=== PATIENT | male | born 1965 | race Caucasian/White ===

== ENCOUNTER 2022-04-21 00:16 | Emergency (ER) | payer MEDICAID, OTHER ==
[~2022-04-21] VITALS: Ht 203.2 cm; Wt 163.3 kg
[2022-04-21 00:46] VITALS: BP 188/90
--- NOTE | 2022-04-21 00:46 | NUR ---
[facility]IB[facility] 839 FROM B/C C/O BACK PAIN AND GROIN PAIN FROM RECENT TESTICULAR SURGERY. PT A/OX4. TOLERATING R/A WELL WITH NO RESP DISTRESS. SAFETY MEASURES IN PLACE.
--- NOTE | 2022-04-21 01:09 | NUR ---
called the facility multiple times to have the med list sent but no answer despite multiple call attempts
[2022-04-21] MEDS ORDERED: HYDROMORPHONE 1 MG/1 ML DISP.SYRIN ONE (01:13)
[2022-04-21] MEDS ORDERED: HYDROMORPHONE 1 MG/1 ML DISP.SYRIN IV ONE (01:30)
--- NOTE | 2022-04-21 01:31 | NUR ---
CALLED FACILITY AGAIN BUT STILL NO ANSWER.
--- NOTE | 2022-04-21 01:43 | NUR ---
[facility] 30-40 MIN [employer] ETA
--- NOTE | 2022-04-21 02:27 | NUR ---
[facility] AT PT'S BEDSIDE TO DC PT TO [facility]. REPORT GIVEN TO SHONNA
== END 2022-04-21 02:27 | disposition home or self-care (01) ==
LOC: ER 00:28
DX: G89.18 Other acute postprocedural pain (principal); I10 Essential (primary) hypertension; F32.A Depression, unspecified
CPT/HCPCS: 99283; 96374; J1170

== ENCOUNTER 2023-05-22 00:30 | Inpatient (IN) | payer OTHER ==
[~2023-05-22] VITALS: Ht 203.2 cm; Wt 142.0 kg
[2023-05-22] MEDS ORDERED: KETOROLAC TROMETHAMINE 15 MG/ML VIAL IV ONE (02:00)
[2023-05-22 02:01] LABS: CALCIUM, SERUM 8.5 mg/dL (8.5-10.1); CREATININE 1.2 mg/dL (0.6-1.3); POTASSIUM 4.4 mmol/L (3.5-5.1)
[2023-05-22 02:05] LABS: APPEARANCE,URINE TURBID (CLEAR); BILIRUBIN,URINE NEGATIVE (NEGATIVE); BLOOD, URINE 3+ Ery/uL (NEGATIVE); COLOR,URINE YELLOW (YELLOW); KETONES,URINE NEGATIVE (NEGATIVE); LEUKOCYTE ESTERASE ,URINE 3+ (NEGATIVE); NITRITE, URINE POSITIVE (NEGATIVE); PROTEIN,URINE 1+ mg/dl (NEGATIVE); UGLUCOSE NEGATIVE (NEGATIVE); UROBILINOGEN,URINE 0.2 EU/dL (0.2)
[2023-05-22 02:05] LABS: BASOPHILS % (AUTO) 0.1 % (0.0-2.0); EOSINOPHILS # (AUTO) 0.1 K/uL (0.0-0.7); EOSINOPHILS % (AUTO) 0.4 % (0.0-6.0); HEMATOCRIT 30 % (39-51); HEMOGLOBIN 9.8 g/dL (13.5-17.5); LYMPHOCYTES # (AUTO) 1.9 K/uL (0.8-4.8); LYMPHOCYTES % (AUTO) 13.4 % (20.0-44.0); MEAN CORPUSCULAR HEMOGLOBIN 32 PG (26.0-33.0); MEAN CORPUSCULAR HGB CONC 33 g/dl (31.0-36.0); MEAN CORPUSCULAR VOLUME 96 fL (80-96); MONOCYTES # (AUTO) 1.8 K/uL (0.1-1.30); MONOCYTES % (AUTO) 12.8 % (2.0-12.0); NEUTROPHILS # (AUTO) 10.5 K/uL (1.8-8.9); NEUTROPHILS % (AUTO) 73.3 % (43.0-81.0); PLATELET COUNT (AUTO) 220 K/uL (150-450); RED BLOOD CELL COUNT(AUTO) 3.09 MIL/uL (4.5-6.0); WHITE BLOOD COUNT (AUTO) 14.3 K/uL (4.3-11.0)
[2023-05-22 02:07] LABS: ALBUMIN 2.7 g/dL (3.4-5.0); BILIRUBIN,DIRECT 0.1 mg/dL (0.0-0.2); BILIRUBIN,TOTAL 0.3 mg/dL (0.2-1.0); TOTAL PROTEIN, SERUM 7.6 g/dL (6.4-8.2)
[2023-05-22 02:07] LABS: ADD URINE CULTURE YES; BACTERIA,URINE Moderate /HPF (None Seen); RBC,URINE 21-50 /HPF (0-2); SQUAMOUS EPITHELIAL CELL,UR Few /HPF (None Seen); WBC,URINE 51-80 /HPF (0-3)
[2023-05-22] MEDS ORDERED: KETOROLAC TROMETHAMINE 15 MG/ML VIAL ONE (02:16)
[2023-05-22] MEDS ORDERED: IV NS 0.9% 250 ML IV ONE (02:18)
[2023-05-22] MEDS ORDERED: IOHEXOL-300 100 ML VIAL IV ONE (02:18)
[2023-05-22] MEDS ORDERED: CT SWABBABLE VALVE TRANS SET 1 EA INFUS.SET MC ONE (02:18)
[2023-05-22] MEDS ORDERED: PIPERACILLIN /TAZOBACTAM 3.375 G in IV D5W 50 ML IV ONE (04:00)
[2023-05-22] MEDS ORDERED: PIPERACI/TAZO 3.375GM/D5W 50ML PB IV ONE (04:01)
[2023-05-22] MEDS ORDERED: VANCOMYCIN 1 GM in IV D5W 250 ML IV ONE (05:30)
[2023-05-22] MEDS ORDERED: CLINDAMYCIN 600 MG in IV D5W 100 ML IV ONE (05:30)
[2023-05-22] MEDS ORDERED: CLINDAMYCIN 900 MG/6 ML VIAL ONE (05:32)
[2023-05-22] MEDS ORDERED: VANCOMYCIN 1 GM /D5W 250 ML PB IV ONE (05:32)
[2023-05-22] MEDS ORDERED: IV NS 0.9% 1,000 ML BAG IV ONE (06:00)
[2023-05-22] MEDS ORDERED: MORPHINE SULFATE INJ 2 MG/ML DISP.SYRIN IV ONE (08:30)
[2023-05-22] MEDS ORDERED: MORPHINE SULFATE INJ 2 MG/ML DISP.SYRIN ONE (08:41)
[2023-05-22] MEDS ORDERED: ACET-868 PO (09:21)
[2023-05-22] MEDS ORDERED: HYDR4TAB4 PO (09:21)
[2023-05-22] MEDS ORDERED: MAGN400O6 PO (09:21)
[2023-05-22] MEDS ORDERED: DIVA500T2 PO (09:21)
[2023-05-22] MEDS ORDERED: LAMO200T2 PO (09:21)
[2023-05-22] MEDS ORDERED: HYDR50TA61 PO (09:21)
[2023-05-22] MEDS ORDERED: ACET-2605 PO (09:21)
[2023-05-22] MEDS ORDERED: LISI40TA13 PO (09:21)
[2023-05-22] MEDS ORDERED: BISA10SU11 RC (09:21)
[2023-05-22] MEDS ORDERED: SERT100T PO (09:21)
[2023-05-22] MEDS ORDERED: CRAN3875 PO (09:21)
[2023-05-22] MEDS ORDERED: NA P133E RC (09:21)
[2023-05-22] MEDS ORDERED: CRAN400T3 PO (09:21)
[2023-05-22] MEDS ORDERED: RAME8TAB24 PO (09:21)
[2023-05-22] MEDS ORDERED: HYDR-4077 PO (09:21)
[2023-05-22] MEDS ORDERED: ASPI-1169 PO (09:21)
[2023-05-22] MEDS ORDERED: CLON1TAB PO (09:21)
[2023-05-22] MEDS ORDERED: GABA300C PO (09:21)
[2023-05-22] MEDS ORDERED: AMLO10TA4 PO (09:21)
[2023-05-22 11:30] VITALS: BP 116/64; TEMP 98; O2SAT 100
[2023-05-22] MEDS: ENOXAPARIN SODIUM 40 MG/0.4 ML DISP.SYRIN SQ SCH ×2 (12:00→12:20)
[2023-05-22] MEDS ORDERED: BISACODYL SUPP (10 MG) 10 MG/SUPP.RECT SUPP.RECT RC PRN (12:00)
[2023-05-22] MEDS ORDERED: ONDANSETRON HCL/PF 4 MG/2 ML VIAL IVP PRN (12:00)
[2023-05-22] MEDS ORDERED: hydrALAZINE HCL 50 MG TABLET PO PRN (12:00)
[2023-05-22] MEDS ORDERED: Z GUARD REMEDY 4 OZ OINT TP PRN (12:00)
[2023-05-22] MEDS ORDERED: ACETAMINOPHEN 325 MG TABLET PO PRN (12:00)
[2023-05-22] MEDS: GABAPENTIN 300 MG CAPSULE PO SCH ×2 (12:18→16:07)
[2023-05-22] MEDS: DIVALPROEX SODIUM 500 MG TABLET.DR PO SCH ×2 (12:18→16:07)
[2023-05-22] MEDS: HYDROMORPHONE HCL 2 MG TABLET PO PRN ×2 (12:18→16:50)
[2023-05-22 12:33] LABS: CHOLESTEROL 161 mg/dL (<200); HDL CHOLESTEROL 25 mg/dL (40-60); LDL 110 mg/dL (0-99); TRIGLYCERIDES 147 mg/dL (30-150)
[2023-05-22 12:38] VITALS: BP 124/74; TEMP 97.9; O2SAT 100
[2023-05-22] MEDS: CEFTRIAXONE 1 G in IV D5W 50 ML IV SCH (15:33)
[2023-05-22 16:00] VITALS: BP 103/73; TEMP 97.3; O2SAT 96
[2023-05-22 20:00] VITALS: BP 105/66; TEMP 97.9; O2SAT 97
[2023-05-22] MEDS ORDERED: DOXYCYCLINE 200 MG in IV D5W 250 ML IV SCH (21:00)
[2023-05-22] MEDS: LamoTRIgine 100 MG TABLET PO SCH (22:50)
[2023-05-22] MEDS: DOXYCYCLINE 200 MG in IV D5W 250 ML IV SCH (23:03)
[2023-05-23] MEDS ORDERED: HYDROMORPHONE 1 MG/1 ML DISP.SYRIN IV ONE ×4 (00:30→11:30)
[2023-05-23 01:08] VITALS: BP 107/71
[2023-05-23 04:00] VITALS: BP_SYST 131; BP_SYST 138; BP_DIAS 89; BP_DIAS 93; TEMP 97.5; O2SAT 99
[2023-05-23 07:05] LABS: BASOPHILS % (AUTO) 0.3 % (0.0-2.0); EOSINOPHILS # (AUTO) 0.4 K/uL (0.0-0.7); EOSINOPHILS % (AUTO) 3.9 % (0.0-6.0); HEMATOCRIT 30 % (39-51); HEMOGLOBIN 9.9 g/dL (13.5-17.5); LYMPHOCYTES # (AUTO) 1.6 K/uL (0.8-4.8); LYMPHOCYTES % (AUTO) 17.3 % (20.0-44.0); MEAN CORPUSCULAR HEMOGLOBIN 32 PG (26.0-33.0); MEAN CORPUSCULAR HGB CONC 33 g/dl (31.0-36.0); MEAN CORPUSCULAR VOLUME 96 fL (80-96); MONOCYTES # (AUTO) 0.8 K/uL (0.1-1.30); MONOCYTES % (AUTO) 8.6 % (2.0-12.0); NEUTROPHILS # (AUTO) 6.5 K/uL (1.8-8.9); NEUTROPHILS % (AUTO) 69.9 % (43.0-81.0); PLATELET COUNT (AUTO) 224 K/uL (150-450); RED CELL DISTRIBUTION WIDTH 14.1 % (11.5-15.0); WHITE BLOOD COUNT (AUTO) 9.3 K/uL (4.3-11.0)
[2023-05-23 07:15] LABS: INR 1.2 (0.91-1.10); PARTIAL THROMBOPLASTIN TIME 29.3 SEC (24.3-34.3); PROTHROMBIN TIME 12.6 SECS (9.2-11.1)
[2023-05-23 07:22] LABS: CALCIUM, SERUM 8.4 mg/dL (8.5-10.1); CREATININE 0.9 mg/dL (0.6-1.3); MAGNESIUM 2.3 mg/dL (1.8-2.4); PHOSPHORUS 4.4 mg/dL (2.5-4.9); POTASSIUM 4.4 mmol/L (3.5-5.1)
[2023-05-23] MEDS: PANTOPRAZOLE 40 MG TABLET.DR PO SCH (07:30)
[2023-05-23 08:00] VITALS: BP 114/89; TEMP 98.1; O2SAT 96
[2023-05-23] MEDS: LISINOPRIL (20MG) 20 MG TABLET PO SCH (09:00)
[2023-05-23] MEDS: DIVALPROEX SODIUM 500 MG TABLET.DR PO SCH ×3 (09:00→16:25)
[2023-05-23] MEDS: GABAPENTIN 300 MG CAPSULE PO SCH ×3 (09:00→16:25)
[2023-05-23] MEDS: SERTRALINE HCL 50 MG TABLET PO SCH (09:00)
[2023-05-23] MEDS: AMLODIPINE BESYLATE 10 MG TABLET PO SCH (09:00)
[2023-05-23] MEDS: ASPIRIN 81 MG TAB.CHEW PO SCH (09:00)
[2023-05-23] MEDS: DOXYCYCLINE 200 MG in IV D5W 250 ML IV SCH ×2 (10:14→21:41)
[2023-05-23] MEDS ORDERED: POLYMYXIN B SULFATE 0 UNITS ONE (13:20)
[2023-05-23] MEDS ORDERED: BUPIVACAINE 0.5 % PF 150 MG/30 ML VIAL ONE (13:21)
[2023-05-23] MEDS ORDERED: LIDOCAINE HCL/MPF 1% 30 ML VIAL IJ ONE (13:21)
[2023-05-23] MEDS ORDERED: BUPIVACAINE 0.25% 75 MG/30 ML VIAL ONE (13:21)
[2023-05-23] MEDS ORDERED: FENTANYL PF 100MCG/2ML AMPUL ONE (14:00)
[2023-05-23] MEDS ORDERED: MIDAZOLAM HCL 2 MG/2ML VIAL ONE (14:00)
[2023-05-23] MEDS ORDERED: ROCURONIUM BROMIDE 50 MG/5 ML ONE (14:19)
[2023-05-23] MEDS ORDERED: HYDROMORPHONE 1 MG/1 ML DISP.SYRIN ONE (15:50)
[2023-05-23 16:00] VITALS: BP 121/77; TEMP 97.3; O2SAT 95
[2023-05-23] MEDS: CEFTRIAXONE 1 G in IV D5W 50 ML IV SCH (16:24)
[2023-05-23] MEDS: ENOXAPARIN SODIUM 40 MG/0.4 ML DISP.SYRIN SQ SCH (16:51)
[2023-05-23] MEDS: HYDROMORPHONE HCL 2 MG TABLET PO PRN (18:05)
[2023-05-23 20:00] VITALS: BP 108/69; TEMP 98; O2SAT 97
[2023-05-23] MEDS: LamoTRIgine 100 MG TABLET PO SCH (21:41)
[2023-05-23] MEDS: HYDROCODONE/APAP 10/325MG TABLET PO PRN (22:09)
[2023-05-24] MEDS: HYDROCODONE/APAP 10/325MG TABLET PO PRN ×4 (03:48→23:43)
[2023-05-24 06:21] VITALS: BP 141/86; TEMP 97.8; O2SAT 98
[2023-05-24 07:26] LABS: BASOPHILS % (AUTO) 0.4 % (0.0-2.0); EOSINOPHILS # (AUTO) 0.3 K/uL (0.0-0.7); EOSINOPHILS % (AUTO) 4.3 % (0.0-6.0); HEMATOCRIT 31 % (39-51); LYMPHOCYTES # (AUTO) 1.8 K/uL (0.8-4.8); LYMPHOCYTES % (AUTO) 27.5 % (20.0-44.0); MEAN CORPUSCULAR HEMOGLOBIN 33 PG (26.0-33.0); MEAN CORPUSCULAR HGB CONC 33 g/dl (31.0-36.0); MEAN CORPUSCULAR VOLUME 100 fL (80-96); MONOCYTES # (AUTO) 0.5 K/uL (0.1-1.30); MONOCYTES % (AUTO) 7.8 % (2.0-12.0); NEUTROPHILS # (AUTO) 3.9 K/uL (1.8-8.9); PLATELET COUNT (AUTO) 230 K/uL (150-450); RED BLOOD CELL COUNT(AUTO) 3.06 MIL/uL (4.5-6.0); RED CELL DISTRIBUTION WIDTH 14.2 % (11.5-15.0); WHITE BLOOD COUNT (AUTO) 6.5 K/uL (4.3-11.0)
[2023-05-24 07:56] LABS: CALCIUM, SERUM 8.1 mg/dL (8.5-10.1); CREATININE 0.8 mg/dL (0.6-1.3); MAGNESIUM 2.5 mg/dL (1.8-2.4); PHOSPHORUS 3.8 mg/dL (2.5-4.9); POTASSIUM 4.5 mmol/L (3.5-5.1)
[2023-05-24] MEDS: PANTOPRAZOLE 40 MG TABLET.DR PO SCH (07:59)
[2023-05-24 08:00] VITALS: BP 120/71; TEMP 98.5; O2SAT 98
[2023-05-24] MEDS: DIVALPROEX SODIUM 500 MG TABLET.DR PO SCH ×3 (08:41→17:27)
[2023-05-24] MEDS: LISINOPRIL (20MG) 20 MG TABLET PO SCH (08:41)
[2023-05-24] MEDS: AMLODIPINE BESYLATE 10 MG TABLET PO SCH (08:41)
[2023-05-24] MEDS: GABAPENTIN 300 MG CAPSULE PO SCH ×3 (08:41→17:27)
[2023-05-24] MEDS: SERTRALINE HCL 50 MG TABLET PO SCH (08:42)
[2023-05-24] MEDS: ASPIRIN 81 MG TAB.CHEW PO SCH (08:42)
[2023-05-24] MEDS: DOXYCYCLINE 200 MG in IV D5W 250 ML IV SCH ×2 (10:08→20:50)
[2023-05-24] MEDS: clonazePAM 1 MG TABLET PO PRN (10:15)
[2023-05-24 12:00] VITALS: BP 125/98; TEMP 98.1; O2SAT 100
[2023-05-24] MEDS: ENOXAPARIN SODIUM 40 MG/0.4 ML DISP.SYRIN SQ SCH (13:29)
[2023-05-24] MEDS: HYDROMORPHONE HCL 2 MG TABLET PO PRN (13:30)
[2023-05-24] MEDS: CEFTRIAXONE 1 G in IV D5W 50 ML IV SCH (15:48)
[2023-05-24 16:00] VITALS: BP 131/70; TEMP 98.3; O2SAT 100
[2023-05-24 20:00] VITALS: BP 124/81; TEMP 97.5; O2SAT 95
[2023-05-24] MEDS ORDERED: HYDROMORPHONE INJ 2 MG/ML DISP.SYRIN IV ONE (20:30)
[2023-05-24] MEDS: LamoTRIgine 100 MG TABLET PO SCH (20:51)
[2023-05-25] MEDS: clonazePAM 1 MG TABLET PO PRN ×2 (00:17→11:41)
[2023-05-25] MEDS: HYDROMORPHONE HCL 2 MG TABLET PO PRN ×2 (02:23→14:19)
[2023-05-25 04:00] VITALS: BP 134/83; TEMP 98.4; O2SAT 94
[2023-05-25 06:55] LABS: BASOPHILS % (AUTO) 0.5 % (0.0-2.0); EOSINOPHILS # (AUTO) 0.4 K/uL (0.0-0.7); EOSINOPHILS % (AUTO) 4.9 % (0.0-6.0); HEMATOCRIT 30 % (39-51); HEMOGLOBIN 9.8 g/dL (13.5-17.5); LYMPHOCYTES # (AUTO) 2.2 K/uL (0.8-4.8); LYMPHOCYTES % (AUTO) 31.1 % (20.0-44.0); MEAN CORPUSCULAR HEMOGLOBIN 32 PG (26.0-33.0); MEAN CORPUSCULAR HGB CONC 33 g/dl (31.0-36.0); MEAN CORPUSCULAR VOLUME 96 fL (80-96); MONOCYTES # (AUTO) 0.7 K/uL (0.1-1.30); MONOCYTES % (AUTO) 9.5 % (2.0-12.0); NEUTROPHILS # (AUTO) 3.9 K/uL (1.8-8.9); PLATELET COUNT (AUTO) 288 K/uL (150-450); RED BLOOD CELL COUNT(AUTO) 3.08 MIL/uL (4.5-6.0); RED CELL DISTRIBUTION WIDTH 14.1 % (11.5-15.0); WHITE BLOOD COUNT (AUTO) 7.2 K/uL (4.3-11.0)
[2023-05-25 07:12] LABS: CALCIUM, SERUM 8.1 mg/dL (8.5-10.1); CREATININE 0.9 mg/dL (0.6-1.3); MAGNESIUM 2.1 mg/dL (1.8-2.4); PHOSPHORUS 4.5 mg/dL (2.5-4.9); POTASSIUM 4.2 mmol/L (3.5-5.1)
[2023-05-25] MEDS: HYDROCODONE/APAP 10/325MG TABLET PO PRN (07:37)
[2023-05-25] MEDS: PANTOPRAZOLE 40 MG TABLET.DR PO SCH (07:37)
[2023-05-25 09:00] VITALS: BP 122/85; TEMP 97.9; O2SAT 94
[2023-05-25] MEDS: GABAPENTIN 300 MG CAPSULE PO SCH ×3 (09:29→16:32)
[2023-05-25] MEDS: DIVALPROEX SODIUM 500 MG TABLET.DR PO SCH ×3 (09:29→16:32)
[2023-05-25] MEDS: AMLODIPINE BESYLATE 10 MG TABLET PO SCH (09:29)
[2023-05-25] MEDS: LISINOPRIL (20MG) 20 MG TABLET PO SCH (09:29)
[2023-05-25] MEDS: ASPIRIN 81 MG TAB.CHEW PO SCH (09:30)
[2023-05-25] MEDS: SERTRALINE HCL 50 MG TABLET PO SCH (09:30)
[2023-05-25] MEDS: DOXYCYCLINE 200 MG in IV D5W 250 ML IV SCH (10:19)
[2023-05-25] MEDS: ENOXAPARIN SODIUM 40 MG/0.4 ML DISP.SYRIN SQ SCH ×2 (12:00→12:20)
[2023-05-25] MEDS ORDERED: DOXY-326 PO (13:16)
[2023-05-25] MEDS: CEFTRIAXONE 1 G in IV D5W 50 ML IV SCH (15:41)
[2023-05-25 16:00] VITALS: BP 114/79; TEMP 98.1; O2SAT 95
== END 2023-05-25 18:15 | DRG 720 ==
LOC: ER 00:32 → MEDSG1 09:46
PROVIDERS: ADMIT Nurse Practitioner Acute Care; ATTEND Nurse Practitioner Acute Care
PROC: 0V950ZZ Drainage of Scrotum, Open Approach (ICD-10-PCS; principal; 2023-05-23)
DX: A41.9 Sepsis, unspecified organism (principal); D63.8 Anemia in other chronic diseases classified elsewhere; E87.1 Hypo-osmolality and hyponatremia; G47.00 Insomnia, unspecified; N31.9 Neuromuscular dysfunction of bladder, unspecified; N39.0 Urinary tract infection, site not specified; N43.3 Hydrocele, unspecified; Z90.79 Acquired absence of other genital organ(s); K21.9 Gastro-esophageal reflux disease without esophagitis; V89.2XXS Person injured in unspecified motor-vehicle accident, traffic, sequela; F32.A Depression, unspecified; Z88.1 Allergy status to other antibiotic agents; Z88.8 Allergy status to other drugs, medicaments and biological substances; Z79.82 Long term (current) use of aspirin; Z79.899 Other long term (current) drug therapy; I10 Essential (primary) hypertension; G89.4 Chronic pain syndrome; G62.9 Polyneuropathy, unspecified; N49.2 Inflammatory disorders of scrotum
CPT/HCPCS: 36415; 76870-TC; 80048-TC; 80061-TC; 80076-TC; 81001; 83605-TC; 83735-TC; 83880; 84100-TC; 85025-TC; 85730-TC; 86850-TC; 87040-TC; 87081-TC; 87086-TC; A4223; A6403; A6407; G0378; J0330; J0696; J1170; J1650; J1885; J2250; J2270; J2543; J2704; J2765; J3010; J3370; J3490; J7030; J7050; J7060; Q9967

== ENCOUNTER 2024-09-05 00:03 | Emergency (ER) | payer OTHER ==
[~2024-09-05] VITALS: Ht 188 cm; Wt 126.1 kg
[~2024-09-05 00:03] MED LIST: ACET-2605 PO; ACET-868 PO; AMLO10TA4 PO; ASPI-1169 PO; BISA10SU11 RC; CLON1TAB PO; CRAN3875 PO; CRAN400T3 PO; DIVA500T2 PO; DOXY-326 PO; GABA300C PO; HYDR-4077 PO; HYDR4TAB4 PO; HYDR50TA61 PO; LAMO200T2 PO; LISI40TA13 PO; MAGN400O6 PO; NA P133E RC; RAME8TAB24 PO; SERT100T PO
[2024-09-05] MEDS ORDERED: HYDROCODONE/APAP 5/325MG TABLET ONE (00:41)
[2024-09-05] MEDS: HYDROCODONE/APAP 5/325MG TABLET PO ONE (00:49)
[2024-09-05 01:19] LABS: APPEARANCE,URINE CLOUDY (CLEAR); BILIRUBIN,URINE NEGATIVE (NEGATIVE); BLOOD, URINE 3+ Ery/uL (NEGATIVE); COLOR,URINE YELLOW (YELLOW); KETONES,URINE NEGATIVE (NEGATIVE); LEUKOCYTE ESTERASE ,URINE 2+ (NEGATIVE); NITRITE, URINE POSITIVE (NEGATIVE); PROTEIN,URINE 1+ mg/dl (NEGATIVE); UGLUCOSE NEGATIVE (NEGATIVE); UROBILINOGEN,URINE 0.2 EU/dL (0.2)
[2024-09-05] MEDS ORDERED: SULF1TAB48 PO ×2 (01:29→19:00)
[2024-09-05] MEDS ORDERED: SULFAMETH/TRIMETH 800/160 MG 1 UDTAB TABLET ONE (01:30)
[2024-09-05] MEDS: SULFAMETH/TRIMETH 800/160 MG 1 UDTAB TABLET PO ONE (01:31)
[2024-09-05 01:46] LABS: ADD URINE CULTURE YES; BACTERIA,URINE Moderate /HPF (None Seen); RBC,URINE TOO NUMEROUS TO COUN /HPF (0-2); WBC,URINE TOO NUMEROUS TO COUN /HPF (0-3)
[2024-09-05 01:47] LABS: SQUAMOUS EPITHELIAL CELL,UR None Seen /HPF (None Seen)
[2024-09-05 04:24] VITALS: BP 125/70; TEMP 98; O2SAT 97
== END 2024-09-05 04:26 | disposition home or self-care (01) ==
LOC: ER 00:27
DX: Z46.6 Encounter for fitting and adjustment of urinary device (principal); F32.A Depression, unspecified; I10 Essential (primary) hypertension; N31.9 Neuromuscular dysfunction of bladder, unspecified; Z79.82 Long term (current) use of aspirin; Z79.899 Other long term (current) drug therapy; Z88.1 Allergy status to other antibiotic agents
CPT/HCPCS: 81001; 87086-TC; 87186-TC